=== PATIENT | female | born 1955 | race Caucasian/White ===

== ENCOUNTER 2018-01-23 08:21 | Outpatient (CLI) | payer OTHER | END 2018-01-23 08:22 | disposition home or self-care (01) | LOC: BICMAMMO 08:21 | PROVIDERS: ATTEND Obstetrics & Gynecology | DX: Z12.31 Encounter for screening mammogram for malignant neoplasm of breast (principal); Z80.3 Family history of malignant neoplasm of breast | CPT/HCPCS: 77063; 77067 ==

== ENCOUNTER 2018-01-23 14:16 | Emergency (ER) | payer OTHER ==
[2018-01-23 15:20] LABS: #Basophils 0.1 thou/uL (0.0-0.2); #Eosinphils 0.1 thou/uL (0.0-0.7); #Lymphocytes 2.1 thou/uL (1.20-3.40); #Monocytes 0.5 thou/uL (0.11-0.59); #Neutrophils 5.8 thou/uL (1.40-6.50); %Basophils 0.8 % (0.0-1.0); %Eosinophils 0.8 % (0.0-10.0); %Lymphocytes 24.4 % (21.0-51.0); %Monocytes 5.7 % (0.0-10.0); %Neutrophils 68.3 % (42.0-75.0); Hemoglobin 15.1 g/dL (12.0-16.0); Mean Corpuscular HGB CONC 34.6 g/dL (32.0-36.0); Mean Corpuscular Hemoglobin 32.8 pg (27.0-31.0); Mean Corpuscular Volume 94.6 fL (78.0-98.0); Mean Platelet Volume 7.7 fL (7.4-10.4); Platelet Count 213 thou/uL (130-400); RBC Distribution Width 11.8 % (11.5-14.5); White Blood Cell (WBC) Count 8.5 thou/uL (4.8-10.8)
[2018-01-23 15:42] LABS: ALT (SGPT) 30 U/L (8-55); AST (SGOT) 26 U/L (5-34); Albumin 4.6 g/dL (3.4-4.8); Alkaline Phosphatase 83 U/L (40-150); Anion Gap 15 mmol/L (10-20); BUN (Urea Nitrogen) 17 mg/dL (9.8-20.1); Bilirubin, Total 0.5 mg/dL (0.2-1.2); Calc. Creatinine Clearance 0 mL/min (70-130); Calcium 10.4 mg/dL (7.8-10.44); Carbon Dioxide 20 mmol/L (23-31); Chloride 109 mmol/L (98-107); Estimated GFR-MDRD 75; Globulin 3.4 g/dL (2.4-3.5); Glucose 99 mg/dL (80-115); Potassium 4.6 mmol/L (3.5-5.1); Sodium 139 mmol/L (136-145)
--- NOTE | 2018-01-23 16:30 | RAD ---
CHEST TWO VIEW 01/23/18 HISTORY: Chest pain. COMPARISON: None. FINDINGS: Lungs without focal air space consolidation, pneumothorax or effusion. The cardiac silhouette and med iastinal contours within normal limits. No acute osseous abnormality. IMPRESSION: No acute intrathoracic abnormality. POS: [facility]
[2018-01-23 18:16] LABS: Troponin I Less than 0.010 ng/mL (< 0.028)
== END 2018-01-23 19:33 | disposition home or self-care (01) ==
LOC: ERS 14:16
DX: R00.1 Bradycardia, unspecified (principal); F41.9 Anxiety disorder, unspecified
CPT/HCPCS: 36415; 71046; 80053; 84484; 85025; 93005

== ENCOUNTER 2018-02-17 07:56 | Outpatient (CLI) | payer OTHER | END 2018-02-17 07:57 | disposition home or self-care (01) | LOC: BICMAMMO 07:56 | PROVIDERS: ATTEND Nurse Practitioner Family | DX: M85.88 Other specified disorders of bone density and structure, other site (principal) | CPT/HCPCS: 77080 ==

== ENCOUNTER 2019-06-25 10:56 | Outpatient (CLI) | payer OTHER ==
--- NOTE | 2019-06-25 13:12 | MMO ---
Bilateral MAMMO Bilat Screen [facility]. CLINICAL HISTORY: Patient is 63 years old and is seen for screening. The patient has no family history of breast cancer. The patient has no personal history of cancer. The patient has a history of right Excisional Biopsy in 2012 - benign. VIEWS: The views performed were: bilateral craniocaudal with tomosynthesis and bilateral mediolateral oblique with tomosynthesis. FILMS COMPARED: The present examination has been compared to prior imaging studies performed at [facility] on 12/01/2014 and 01/23/2018, and at [facility] on 11/22/2011 and 01/27/2013. This study has been interpreted with the assistance of computer-aided detection. MAMMOGRAM FINDINGS: The breasts are heterogeneously dense, which could obscure a lesion on mammography. Finding 1: There are stable benign appearing calcifications seen in both breasts. Finding 2: There is a stable biopsy clip seen in the right breast. There are no suspicious masses, suspicious calcifications, or new areas of architectural distortion. IMPRESSION: THERE IS NO MAMMOGRAPHIC EVIDENCE OF MALIGNANCY. A ROUTINE FOLLOW-UP MAMMOGRAM IN 1 YEAR IS RECOMMENDED. THE RESULTS OF THIS EXAM WERE SENT TO THE PATIENT. ACR BI-RADS Category 2 - Benign finding MAMMOGRAPHY NOTE: 1. A negative mammogram report should not delay a biopsy if a dominant of clinically suspicious mass is present. 2. Approximately 10% to 15% of breast cancers are not detected by mammography. 3. Adenosis and dense breasts may obscure an underlying neoplasm. Reported by: KEN CAMPBELL MD Electonically Signed: [id number]
== END 2019-06-25 10:57 | disposition home or self-care (01) ==
LOC: BICMAMMO 10:56
PROVIDERS: ATTEND Obstetrics & Gynecology
DX: Z12.31 Encounter for screening mammogram for malignant neoplasm of breast (principal); Z91.89 Other specified personal risk factors, not elsewhere classified
CPT/HCPCS: 77063; 77067